=== PATIENT | male | born 1945 | race Caucasian/White ===

== ENCOUNTER 2020-06-30 15:52 | Emergency (ER) | payer MEDICARE, OTHER ==
[~2020-06-30] VITALS: Ht 180.3 cm; Wt 93.0 kg
[~2020-06-30 15:52] MED LIST: ATIVAN0.5 MG PO; DEMEROL50 MG PO; DILAUDID2 MG PO; FLAGYL500 MG PO; IBUPROFEN800 MG PO; LEVOFLOXACIN750 MG PO; MAPAP325 MG PO; NAPROXEN500 MG PO; OMEPRAZOLE20 MG PO; SEPTRA DS TABL1 EACH PO; TRANSDERM-SCOP1 EA TD; ZOFRAN ODT4 MG SL; ZOFRAN4 MG PO
[2020-06-30] MEDS ORDERED: GABAPENTIN600 MG (17:13)
[2020-06-30] MEDS ORDERED: CELEBREX100 MG PO (17:14)
[2020-06-30] MEDS ORDERED: TYLENOL325 M1 PO (17:15)
[2020-06-30] MEDS ORDERED: CIPRO500 MG PO (19:52)
[2020-06-30] MEDS ORDERED: PYRIDIUM200 MG PO (19:52)
--- OUTSIDE RECORDS SUMMARY | 2020-06-30 19:56 | XMS ---
PreManage Notification: BEKA CHEN Security Credit Representative Events No recent Security Events currently on file CRITERIA MET - [facility] CARE PROVIDERS There are no care providers on record at this time. Debbie has no Care Guidelines for this patient. Marina VISIT COUNT (12 MO.) 1 ALICIA Saha TOTAL 1 NOTE: Visits indicate total known visits. ED/UCC VISIT TRACKING (12 MO.) 06/30/2020 15:52 [facility] Basilio [place] TYPE: Emergency COMPLAINT: - URINE PROBLEM, FEVER INPATIENT VISIT TRACKING (12 MO.) 02/11/2020 05:52 [facility] Harry RASMUSSEN TYPE: Surgical Services DIAGNOSES: - Unilateral primary osteoarthritis, unspecified knee - Pain in left knee [email or web address]
--- NOTE | 2020-07-01 13:52 | EKG ---
[facility] [address] [facility] [place], [place] [address] Signed Sinus tachycardia Otherwise normal ECG No previous ECGs available Confirmed by KATARINA BOB DO ([id number]) on 07/01/2020 1:52:41 PM Electronically Signed By: KATARIAN BOB DO 07/01/20 1352 PATIENT NAME: BEKA CHEN Electrocardiogram DATE OF : 49 PHYSICIAN: KATARINA BOB DO REPORT #: [id number] REPORT IS CONFIDENTIAL AND NOT TO BE RELEASED WITHOUT AUTHORIZATION
== END 2020-06-30 20:20 | disposition home or self-care (01) ==
LOC: ED 15:52
DX: N30.00 Acute cystitis without hematuria (principal); Z88.0 Allergy status to penicillin; Z88.8 Allergy status to other drugs, medicaments and biological substances; Z88.5 Allergy status to narcotic agent; Z88.1 Allergy status to other antibiotic agents; Z79.899 Other long term (current) drug therapy
CPT/HCPCS: 71045; 80053; 81001; 83605; 85025; 93005; 93010; 96365; 96366; 96375; 99284-25; J1956; J2405; J7030

== ENCOUNTER 2020-07-23 03:42 | Emergency (ER) | payer MEDICARE, OTHER ==
[~2020-07-23] VITALS: Ht 180.3 cm; Wt 93.4 kg
[~2020-07-23 03:42] MED LIST changes: +CELEBREX100 MG PO; +CIPRO500 MG PO; +GABAPENTIN300 MG PO; +PYRIDIUM200 MG PO; +TYLENOL325 M1 PO
--- OUTSIDE RECORDS SUMMARY | 2020-07-23 05:18 | XMS ---
PreManage Notification: BEKA CHEN Security Environmental Health Nurse Events No recent Security Events currently on file CRITERIA MET - [facility] - 2 Visits in 30 Days CARE PROVIDERS There are no care providers on record at this time. Debbie has no Care Guidelines for this patient. Marina VISIT COUNT (12 MO.) 2 [facility] TOTAL 2 NOTE: Visits indicate total known visits. ED/C VISIT TRACKING (12 MO.) 07/23/2020 03:42 [facility] [place] TYPE: Emergency COMPLAINT: - URINE PROBLEM 06/30/2020 15:52 [facility] [place] TYPE: Emergency COMPLAINT: - URINE PROBLEM, FEVER DIAGNOSES: - Allergy status to narcotic agent - Allergy status to other antibiotic agents - Allergy status to penicillin - Allergy status to other drugs, medicaments and biological substances - Fever, unspecified - Acute cystitis without hematuria - Other care home (current) drug therapy INPATIENT VISIT TRACKING (12 MO.) 02/11/2020 05:52 [facility] Cady RASMUSSEN TYPE: Surgical Services DIAGNOSES: - Unilateral primary osteoarthritis, unspecified knee - Pain in left knee [id number]
== END 2020-07-23 07:34 | disposition home or self-care (01) ==
LOC: ED 03:42
DX: N13.2 Hydronephrosis with renal and ureteral calculous obstruction (principal); Z87.442 Personal history of urinary calculi; Z88.0 Allergy status to penicillin; Z88.5 Allergy status to narcotic agent; Z88.1 Allergy status to other antibiotic agents; Z88.8 Allergy status to other drugs, medicaments and biological substances; Z79.899 Other long term (current) drug therapy
CPT/HCPCS: 74176; 80053; 81001; 85025; 96365; 96375; 96376; 99284-25; J0696; J1170; J1200; J1885; J2405

== ENCOUNTER 2020-07-23 10:04 | Day surgery (SDC) | payer MEDICARE, OTHER ==
--- NOTE | 2020-07-23 13:35 | NUR ---
07/23/20 1335 Sheets,Iram 1329 PT ARRIVED TO PACU ON 6L, PT WAKES TO TACTILE STIMULI BY OPENING HIS EYES. PT FALLS RIGHT BACK TO SLEEP. VSS. RESP EVEN AND UNLABORED.
--- NOTE | 2020-07-23 13:38 | NUR ---
BELLADONNA SUPPOSITORY DISPENSED BY PARKER HARTMAN PER VERBAL ORDER FROM [facility].AER PLACED BY DR OLIVAS, PER RECTUM, AT END OF CASE 1320
--- NOTE | 2020-07-23 16:42 | NUR ---
New admit to the floor. Patient awake, alert and oriented x4. Haas intact, patent with keyla blood colored urine. Patient reports tolerable pain at this time. Recent pain medications admin in pacu per report. Vital signs stable, afebrile. IV fluids infusing without difficulty. Water provided to patient. Call light within reach.
--- NOTE | 2020-07-23 17:15 | NUR ---
Patient awake, a&ox4. Pt is on room air, respirations are even and non labored. Vital signs are stable, afebrile. Pt reports 7/10 bladder and penile pain. Haas remains intact, keyla red blood noted to be mixed with his urine. Pt tolerating clear liquids well. Will order dinner for the patient at this time and medicate him for pain, per his request. Patient has no needs. Personal supplies and call light within reach.
--- NOTE | 2020-07-23 17:33 | NUR ---
Zofran 8mg ivp and dilaudid 0.5mg ivp admin for reports of nausea and reporte uncontrolled bladder pain.
--- NOTE | 2020-07-23 18:22 | NUR ---
Patient resting in bed, respirations even and non labored. Pt reports improved pain. Haas intact, patent with blood noted urine; no notable clots. Patient declined dinner. Tolerating clear liquids at this time. Vital signs are stable, afebrile. No needs at this time. Personal supplies and call light within reach.
--- NOTE | 2020-07-23 19:10 | NUR ---
REPORT RECEIVED FROM MAGDIEL RN, PT LAYING IN BED, ALERT AND ORIENTED. ROSE DRAINING RED URINE, NO CLOTS NOTED, IRRIGATION SUPPLIES AT BEDSIDE. IVF INFUSING WNL, ON 2L O2 NC, CPOX IN PLACE AT 96%, SCDS IN PLACE. CALL LIGHT IN REACH, WATER REFILLED, PT STATES NO OTHER NEEDS AT THIS TIME. WILL CONT TO MONITOR
--- NOTE | 2020-07-23 20:58 | NUR ---
VITALS, I/O'S AND ASSESSMENT COMPLETE-- PT RESTING IN BED, ORIENTED BUT STATES SLIGHTLY DROWSY. REPORTS 5/10 PAIN, PRN MEDICATION ADMINISTERED. ROSE PATENT, DARK JIGAR/RED URINE DRAINING WITH NO CLOTS NOTED, 200ML OUT. IVF INFUSING WNL. ON 2L 02 NC, CPOX IN PLACE SPO2 100%, TITRATED TO 1.5 L, SPO2 AT 98%. WATER REFRESHED, CALL LIGHT IN REACH, NO OTHER NEEDS AT THIS TIME.
--- NOTE | 2020-07-23 21:29 | NUR ---
CHECKED IN ON PATIENT, SPO2 AT 98%, PT REPORTS PRN PAIN MEDS "HELPING A LITTLE SO FAR", NO CLOTS NOTED IN CATHETER OR ROSE BAG. IVF INFUSING WNL. PT STATES PAIN IN URETHRA IS CHRONIC, "THE LAST MONTH OR SO" AND STATES HE WILL USE CALL LIGHT IF PAIN BECOMES INTOLERABLE. NO OTHER NEEDS REPORTED, WILL CONT TO MONITOR.
--- NOTE | 2020-07-23 21:35 | NUR ---
CALL LIGHT ANSWERED, PT REQUESTS WATER REFILLED, CELL PHONE PLUGGED IN, ASKS AGAIN ABOUT HOME MEDICATIONS, DISCUSSED PLAN OF CARE AND MEDS WITH PATIENT. NO OTHER REQUESTS AT THIS TIME, CALL LIGHT IN REACH.
--- NOTE | 2020-07-23 22:25 | NUR ---
CALL LIGHT ANSWERED, PT REPORTS INCREASE IN PAIN /, IV PRN MEDICATION ADMINISTERED, ROSE PATENT, RED/DARK JIGAR DRAINAGE W NO CLOTS. PT STATES FEELING NEED TO VOID, PAIN AT URETHRA, CATHETER FLUSHED WITH 60 ML SALINE IRRIGATION FLUID. NO OTHER NEEDS AT THIS TIME, WILL CONT TO MONITOR
--- NOTE | 2020-07-23 23:40 | NUR ---
Rounded on patient, awake in bed, states experiencing nausea and itching. PRN Zofran and Benadryl administered. Pt states pain is 4/10, is tolerable at this time. 740 ML red urine emptied from menard bag, no clots noted. Water refreshed, call light in reach, no other needs at this time.
--- NOTE | 2020-07-24 00:53 | NUR ---
Rounded on patient, states he is uncomfortable, menard care complete and repositioned in bed. Discussed plan of care w patient. Juice provided, call light in reach, no other needs at this time.
--- NOTE | 2020-07-24 02:30 | NUR ---
VITALS, ASSESSMENT COMPLETE, PRN PAIN MEDICATION ADMINISTERED FOR 3-6/10 PAIN, PT STATES INTERMITTENT SHARP CRAMPS. ROSE PATENT, RED DRAINAGE WITH NO CLOTS IN ROSE TUBING OR BAG. TITRATED TO 1L 02, SPO2 97%. VSS. IVF INFUSING WNL. CALL LIGHT IN REACH, PT STATES NO OTHER NEEDS.
--- NOTE | 2020-07-24 04:56 | NUR ---
ROUNDED ON PATIENT, AWAKE IN BED, STATES PAIN IS "CLIMBING UP" MADE PLAN FOR PRN MEDICATIONS WHEN AVAILABLE. IVF INFUSING WNL. RED DRAINAGE IN ROSE, NO CLOTS PRESENT. CALL LIGHT IN REACH, WILL CONTINUE TO MONITOR
--- NOTE | 2020-07-24 05:28 | NUR ---
PRN PAIN MEDICATION ADMINISTERED FOR 7/10 PENILE PAIN. PT REPORTS GENERALLY UNCOMFORTABLE. IVF INFUSING WNL. NOW ON ROOM AIR, SPO2 97%. LAB IN ROOM.
--- NOTE | 2020-07-24 07:24 | NUR ---
REPORT RECIEVED FROM ABEBE HERRERA. PT RESTING IN BED WITH EYES OPEN. PT REPORTS HE WAS NOT ABLE TO SLEEP MUCH LAST NIGHT. PT REPORTS 3/10 PAIN STATING THE "PAIN MEDICATION IS HELPING." WHILE THIS RN IS IN ROOM PT BEGINS CRINGING AND CRYING OUT. WHEN ASKED PT STATES HIS BLADDER IS HAVING A SPASAM. BELLADONNA PROVIDED FOR PT. CATHETER EXAMINED, INTACT WITH NO DRAINAGE NOTED AT MEATUS. LIGHT PINK URINE DRAINING, NO CLOTS NOTED. PT REMAINS ON CONTINIOUS PULSE OX WITH O2 AT 97% ON ROOM AIR AND HEART RATE OF 78 BPM. BREAKFAST ORDER PLACED PER PT PREFERENCE. NO ADDITIONAL REQUESTS OR COMPLAINTS. CALL LIGHT WITHIN REACH. BED RAILS UP.
--- NOTE | 2020-07-24 09:01 | OR ---
[facility] [address] [place], [place] [address] Signed DATE OF OPERATION: 07/23/2020 SURGEON: Eddie Olivas MD PREOPERATIVE DIAGNOSES: 1. Two tiny distal left ureteral calculi with associated mild obstructive uropathy. 2. Active Escherichia coli urinary tract infection. POSTOPERATIVE DIAGNOSES: 1. Two tiny distal left ureteral calculi with associated mild obstructive uropathy. 2. Active Escherichia coli urinary tract infection. 3. Moderate caliber bulbar urethral stricture. 4. 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 NAMES OF PROCEDURES: 1. Diagnostic urethroscopy with urethral dilation using Kamran dilators from 12 to 24-Yemeni. 2. Diagnostic cystoscopy with left ureteral stent insertion. ANESTHESIA: General. ESTIMATED BLOOD LOSS: 15 mL. SPECIMENS: None. DRAINS: 1. A 6 x 28 cm double-J ureteral stent inserted into the left ureter. 2. A 24-Yemeni 2-way Haas catheter, connected to gravity drainage. INDICATIONS FOR PROCEDURE: Mr. Chen is a very pleasant 74-year-old male with a history of nephrolithiasis, who presented to my clinic earlier today upon referral from [facility] for evaluation of left distal ureterolithiasis. He had presented to the emergency department late last night with severe left-sided flank pain. He underwent a CT scan, which revealed 2 tiny ureteral calculi measuring 1 to 2 mm located near the left ureterovesical junction. Urinalysis was performed, which was suspicious for active urinary tract infection. He had presented to the emergency department on June 30 Electronically Signed By: EDDIE OLIVAS MD 07/24/20 0901 PATIENT NAME: BEKA CHEN OPERATIVE REPORT DATE OF : 49 REPORT #: [id number] PHYSICIAN: EDDIE OLIVAS MD PCP: OSMEL FERREIRA MD REPORT IS CONFIDENTIAL AND NOT TO BE RELEASED WITHOUT AUTHORIZATION [facility] [address] [place], [place] [address] Signed with complaints of urinary urgency, frequency, dysuria, and suprapubic pain, along with fevers and chills. His temperature was elevated at 103 degrees at that time and he was noted to have an elevated white count at around 16. No imaging was performed at that time. However, his urine was sent for culture and he was given empiric Cipro therapy. The urine culture revealed E. coli resistant to Levaquin, Cipro, Bactrim, and penicillins and so, his antibiotic was switched to cephalexin, which he took for approximately 10 days. His fever has since subsided, but he experienced acute left-sided plate flank pain last night. After discussion of the results of last night's CAT scan and his what appears to be an active urinary tract infection today, I recommended that the patient undergo semi-urgent left ureteroscopy with stone extraction. He presents today to undergo the aforementioned procedure. OPERATIVE FINDINGS: 1. Ureteroscopy was performed, which immediately revealed a moderate caliber stricture present in the bulbar urethra. This stricture was dilated using Kamran dilators over a 0.035 Sensor wire from 12-Yemeni to 24-Yemeni without difficulty. 2. Of note, diagnostic cystoscopy performed after dilation of the patient's bulbar urethral stricture revealed a small perforation in the posterior wall of the bladder, likely secondary to penetration of the Kamran dilator into the posterior wall of the bladder. This was noted immediately and for the remainder of the procedure, I was sure to keep the patient's bladder volumes at a minimum to prevent any potential leakage of irrigation into the patient's peritoneum. 3. Left semi-rigid ureteroscopy revealed [id number] stenosis of the distal left ureter. I did see one very small stone fragment from the left ureteral orifice. This small stone fragment fell into the patient's bladder during attempts to pass the ureteroscope into the left ureter. Even with the assistance of guidance of a Sensor wire, I was unable to safely pass the rigid ureteral scope into the left ureter for fear of damage to the ureter. I aborted my attempt to perform ureteroscopy and instead kept the Sensor wire fully advanced into the left renal pelvis, and removed the semi-rigid ureteroscope. 4. Over a Sensor wire, a 6 x 28 cm double-J ureteral stent was inserted into the patient's left collecting system under direct visualization without difficulty. 5. At the end of the procedure, a 24-Yemeni 2-way Haas catheter was inserted into the patient's bladder without difficulty. The catheter was manually irrigated 3 times to ensure adequate placement. 6. Of note, no stone fragments were extracted from the ureter today as I was unable to successfully cannulate the left ureter due to stenosis of the left distal ureter. DESCRIPTION OF PROCEDURE: After informed consent was obtained, the patient was taken back to the operating room. [facility] room table, where general anesthesia was induced. He was placed in the dorsal lithotomy position and his genitalia were Electronically Signed By: EDDIE OLIVAS MD 07/24/20 0901 PATIENT NAME: BEKA CHEN OPERATIVE REPORT DATE OF : 49 REPORT #: [id number] PHYSICIAN: EDDIE OLIVAS MD PCP: OSMEL FERREIRA MD REPORT IS CONFIDENTIAL AND NOT TO BE RELEASED WITHOUT AUTHORIZATION [facility] [address] [place], [place] [address] Signed prepped and draped in a standard sterile fashion. Using a 30-degree lens on a 22.5-Yemeni introducer, rigid cystoscope was inserted into the patient's urethra. I immediately noticed the moderate caliber bulbar urethral stricture. I passed a 0.035 Sensor wire through the stricture into the patient's bladder. Successful passage of the wire to the bladder was confirmed on fluoroscopy. Cystoscope was then removed from the patient's urethra. I then dilated the patient's urethra from 12-Yemeni 24-Yemeni using Kamran dilators guided over the Sensor wire. The urethral dilation was performed without any overt difficulty. The patient's bladder was drained of orange tinted urine via the Kamran dilators. The patient had been taking Pyridium prior to his procedure. Once the dilation was complete, I was able to insert a rigid cystoscope through the urethra and into the patient's bladder at this time. Diagnostic cystoscopy was performed and I immediately noticed the small perforation at the posterior wall of the bladder. This appeared to be secondary to passage of the Kamran into the posterior bladder wall during dilation. I did not see any obvious perivesical fat in the area. I drained the patient's bladder again and then removed the cystoscope. I then inserted a semi-rigid ureteroscope through the patient's urethra and into the patient's bladder. I located the left ureteral orifice where I initially noticed a small very small fragment of stone coming from the left ureteral orifice. I knew immediately that I would be unable to basket the stone from the left ureteral orifice since some of the stone remained within the left ureter. I made the decision to attempt to cannulate the left ureter using the semi-rigid ureteroscope. I initially met with a good deal of resistance during cannulization, so I remained in the distal ureter and advanced a Sensor wire through the ureteroscope and into the distal left ureter. I was able to pass the Sensor wire all the way up into the left renal pelvis. Placement of the wire was confirmed on fluoroscopy. With the wire in place, I then tried again to advance the ureteroscope using the Sensor wire as a guide. I tried a couple of times to gently advance the ureteroscope into the distal left ureter. There was a significant amount of stenosis in this area and after a couple of attempts, I decided to abort this portion of the procedure. The semi-rigid ureteroscope was then removed from the patient's bladder. I again confirmed proper position of the Sensor wire. I back-loaded the Sensor wire into a rigid cystoscope and successfully inserted a 6 x 28 cm double-J ureteral stent into the left collecting system without difficulty. After pulling the Sensor wire, I noticed an adequate coil within the left renal pelvis along with an adequate distal coil within the bladder. Again, I drained the patient's bladder again to avoid any significant distention of his bladder, given his very small punctate perforation. Once I was satisfied that the stent was in good position, I withdrew the cystoscope from the patient's bladder. I then inserted a 26-Yemeni 2-way Haas catheter into the patient's bladder and filled the balloon with 20 mL of sterile water. I manually irrigated the catheter 3 times with sterile water and irrigated normally and without any difficulty. The procedure was then terminated. The patient tolerated the procedure well. He will now be transferred to the postanesthesia care unit in stable condition. Electronically Signed By: EDDIE OLIVAS MD 07/24/20 0901 PATIENT NAME: BEKA CHEN OPERATIVE REPORT DATE OF : 49 REPORT #: [id number] PHYSICIAN: EDDIE OLIVAS MD PCP: OSMEL EFRREIRA MD REPORT IS CONFIDENTIAL AND NOT TO BE RELEASED WITHOUT AUTHORIZATION [facility] [address] [place], [place] [address] Signed DISPOSITION: I discussed the details of today's procedure with the patient's and answered all of her questions. I did notify her that I was unable to actively extract the 2 very small stones from the patient's distal left ureter due to stenosis of the distal left ureter. He will now recover in the PACU and we will continue to watch his urine output from his Haas catheter to be sure it is draining properly. He was sent home today with a prescription for oral Dilaudid 2 mg p.o. q. 4 to 6 hours p.r.n. pain, along with cefdinir 300 mg p.o. b.i.d. for a total of 10 days. He will be scheduled to return to clinic on August 05 to undergo a voiding trial and on August 07 to undergo cystoscopy with extraction of his indwelling left ureteral stent. MD PATRICIA Nova/PHUONG /[id number] Copies: ~ Electronically Signed By: EDDIE OLIVAS MD 07/24/20 0901 PATIENT NAME: BEKA CHEN OPERATIVE REPORT DATE OF : 49 REPORT #: [id number] PHYSICIAN: EDDIE OLIVAS MD PCP: OSMEL FERREIRA MD REPORT IS CONFIDENTIAL AND NOT TO BE RELEASED WITHOUT AUTHORIZATION
--- NOTE | 2020-07-24 09:20 | NUR ---
MORNING ASSESSMENT DUE. PT RESTING IN BED. PT REPORTS PAIN MEDICATION "HELPED." PAIN NOW 3/10 IN LOWER ABDOMEN ON LEFT SIDE. PT CONTINUES TO HAVE OCCATIONAL BLADDER SPASMS. CATHETER CARE DONE. CATHETER FLUSHED WITH 20ML NS. NO CLOTS NOTED. URINE LIGHT PINK. LUNG SOUNDS CLEAR. ABDOMEN SOFT. MD TO BEDSIDE FOR ROUNDS. NEW ORDERS PLACED FOR CMP AND UP TO CHAIR PER MD ORDER. 1PERSON ASSIST UP TO CHAIR. PT UNSTEADY ON FEET LOOSING BALANCE FREQUENTLY. O2 REMAINTS AT 96% ON ROOM AIR. BLADDER SPASMS LESSEN WITH TIME UP TO CHAIR. WARM BLANKET PROVIDED. NO ADDITIONAL REQUESTS OR COMPLAINTS. CALL LIGHT WITHIN REACH.
--- NOTE | 2020-07-24 10:12 | NUR ---
THIS RN TO ROOM TO CHECK ON PT. PT REMAINS UP TO CHAIR. MORNING CARES, CATHTER CARE AND LINEN CHANGE DONE. PT REPORTS 4/10 PAIN THAT IS "TOLERABLE" AT THIS TIME. PT CONTINUES TO HAVE OCCATIONAL BLADDER SPASMS, GROANING IN PAIN. SPAAMS SEEM TO OCCUR ABOUT EVERY 10 MINUTES. IV ABX COMPLETE. IV FLUIDS RESUMED. WATER REFILLED. O2 AT 93% ON ROOM AIR. HR 75BPM. PT DENIES ADDITIONAL REQUESTS OR COMPLAINTS. CALL LIGHT AMADOR BOONE. CT CALLED FOR IMAGING.
--- NOTE | 2020-07-24 10:47 | NUR ---
CT TECHNITIAN ARRIVED TO TAKE PT TO CT. IV SALINE LOCKED, ALCOHOL CAPS APPLIED. PT STANDS AND TRANSFERES SELF TO WHEELCHAIR WITH STAND BY ASSIST. CONTINUES TO BE UNSTEADY ON FEET. PT OFF FLOOR TO CT AT THIS TIME.
--- NOTE | 2020-07-24 11:41 | NUR ---
BOOTH CLEANER INFORMS THIS RN THAT PT HAS RETURNED FROM CT. THIS RN TO ROOM. PT FOUND STANDING ON HIS OWN. FALL PRECAUTIONS REVIEWED WITH PT. PT VERBALIZES UNDERSTANDING AND STATES "I HAD TO STAND TO HELP ME PEE SO THE PAIN WOULD GET BETTER." PT REPORTS 8/10 PAIN IN LOWER ABDOMEN AND AT SITE OF ROSE CATHETER. PT CONTINUES TO STATE "I STILL WANT TO GO HOME TODAY." STAND BY ASSIST UP TO CHAIR. CALL LIGHT WITHIN REACH. MD TO BEDSIDE FOR UPDATE. AWAITING NEW ORDERS.
--- NOTE | 2020-07-24 11:57 | NUR ---
WHEN PATIENT GOT BACK FROM IMAGING I HELPED PUT HIM BACK TO BED AND PUT HIS SCDS ON. ALSO PUT HIS HEAD UP AND FEET. I ALSO ORDERED HIS LUNCH.
--- NOTE | 2020-07-24 12:00 | NUR ---
DR. OLIVAS TO BEDSIDE WITH THIS RN TO ASSIST WITH ROSE CATHETER REPLACEMENT. 5ML REMOVED FROM CATHETER BALLOON, NO ADDITIONAL FLUID NOTED. CATHETER DC'D PER PROTOCOL, 325ML LIGHT PINK URINE NOTED IN CATHETER BAG. BEDSIDE VERBAL ORDERS GIVEN FOR UROJET LIDOCANE. ORDERS PLACED. COUDAE CATHETER PLACED BY DR. OLIVAS PER PROTOCOL, 425ML PINK URINE RETURN NOTED. CATHETER 20ML ADDED TO CATHETER BALLOON BY DR. OLIVAS. PT CONTINUES TO HAVE 8/10 PAIN "AT THE TIP AND RIGHT HERE" POINTING TO LOWER ABDOMEN. MD STATES TO GIVEN ORAL PAIN MEDICATION NOW WELL 1MG LOADING DOSE OF IV DILAUDID AND BELLADONA SUPPOSITORY. ALL GIVEN PER MD ORDER WITH MD AT BEDSIDE (SEE MAR). DUSTY AREA NOTED TO HAVE STOOL. DUSTY CARE DONE. PT CONTINUES RESTING IN BED. BED RAILS UP. CALL LIGHT WITHIN REACH.
--- NOTE | 2020-07-24 12:10 | NUR ---
DR OLIVAS AND ABEBE HOUGH IN CARING FOR PT. UNABLE TO VISIT AT THIS TIME. WILL FOLLOW
--- NOTE | 2020-07-24 12:18 | EKG ---
[facility] [address] [facility] [place], [place] [address] Signed Sinus rhythm with 1st degree AV block Otherwise normal ECG When compared with ECG of 30-JUN-2020 16:21, No significant change was found Confirmed by SANGEETHA FOSS MD ([id number]) on 07/24/2020 12:18:05 PM Electronically Signed By: SANGEETHA FOSS MD 07/24/20 1218 PATIENT NAME: BEKA CHEN Electrocardiogram DATE OF : 49 PHYSICIAN: SANGEETHA FOSS MD REPORT #: [id number] REPORT IS CONFIDENTIAL AND NOT TO BE RELEASED WITHOUT AUTHORIZATION
--- NOTE | 2020-07-24 13:23 | NUR ---
ULTRASOUND TECHNITIAN TO BEDSIDE. REQUESTS ASSISTANCE FROM THIS RN. THIS RN ADDS 100ML TO BLADDER FOR IMAGING. PT HAS INCREASED PAIN WITH ADDITIONAL FLUID TO BLADDER. PT REPORTS 4/10 "REALLY PAINFUL" TIGHT PAIN PRIOR TO ADDITONAL FLUID AND 8/10 PAIN AFTER ADDITION OF FLUID TO BLADDER. FLUID DRAINED AFTER 5 MINUTES. 100ML NOTED TO HAVE DRAINED. PT CONTINUES TO REPORT 8/10 PAIN STATING IT IS "REALLY BAD. LIKE I HAVE AN EXTREEMLY FULL BLADDER." ULTRASOUND TECHNITIAN REMAINS AT BEDSIDE TO FINISH EXAM. BED RAILS UP. CALL LIGHT WITHIN REACH.
--- NOTE | 2020-07-24 13:29 | NUR ---
PT STATES "THIS CATHETER HAS TO COME OUT. SOMETHING HAS TO HAPPEN, I'M GOING TO TAKE IT OUT." PT ADVISED THAT REMOVING HIS CATHETER IS UNLIKELY TO HELP. PT STATES HE WOULD LIKE TO TALK WITH THE DOCTOR. DR. OLIVAS CALLED AND UPDATED. ORDERS GIVEN FOR ADDITIONAL DOSE OF DILAUDID ONCE WELL IV LORAZAPAM ONCE IF DILAUDID IS NOT EFFECTIVE. DILAUDID GIVEN PER MD ORDER. PT UPDATED ON PLAN OF CARE. CALL LIGHT WITHIN REACH. BED RAILS UP.
--- NOTE | 2020-07-24 13:44 | NUR ---
PTS , NADINE, CALLED TO TALK WITH PT. PT REQUESTS THAT THIS RN UPDATE NADINE. NADINE UPDATED ON PLAN OF CARE AND PROCEEDURES TODAY. NADINE VERBALIZES UNDERSTANDING AND STATES HER QUESTIONS HAVE BEEN ANSWERED.
--- NOTE | 2020-07-24 14:38 | NUR ---
THIS RN TO ROOM TO CHECK ON PT. PT REPORTS PAIN CONTINUES AT 4-5/10. PT STATES HE WOULD LIKE TO TAKE THE LORAZAPAM. CONTINIOUS PULSE OX IN PLACE. O2 AT 94% ON ROOM AIR. IV ASSESSED, PT REPORTS PAIN AT IV SITE. SWELLING/INFILTRATION NOTED. IV DC'S PER PROTOCOL. NEW IV STARTED IN LEFT HAND PER PROTOCOL, BRISK BLOOD RETURN NOTED. IV FLUIDS CONTINUE INFUSING THROUGH LEFT HAND IV, NEW IV FLUID BAG HUNG. LORAZAPAM GIVEN (SEE MAR). PT DENIES ADDITIONAL REQUESTS OR COMPLAINTS AT THIS TIME. RIG MECHANIC TO BEDSIDE TO ASSIST PT. NO ADDITIONAL REQUESTS OR COMPLAINTS. CALL LIGHT WITHIN REACH.
--- NOTE | 2020-07-24 15:30 | NUR ---
THIS RN TO ROOM TO CHECK ON PT. PT RESTING IN BED. PT REPORTS PAIN HAS IMPROVED, NOW 2/10 ACHING PAIN. PT TEXTING ON PHONE. PT DENIES ADDITIONAL REQUESTS OR COMPLAINTS STATING HE IS FEELING "BETTER." CALL LIGHT WITHIN REACH. BED RAILS UP.
--- NOTE | 2020-07-24 15:55 | NUR ---
THIS RN WALKING BY ROOM. WATER AND BLOOD NOTED ALL OVER FLOOR. UPON ENTERING ROOM PT FOUND UP IN SHOWER WITH WATER RUNNING AND BLOOD DRIPPING FROM IV LINE. ROSE CATHETER LYING ON THE FLOOR. IV LINE RIPPED FROM PUMP TUBING, BLOOD DRIPPING FROM LINE AND SPLATTERED ALL OVER PTS ROOM, ACUÑA, BATHROOM FLOOR/ACUÑA/TOILET/SINK. THIS RN CALLED FOR ASSISTANCE, IVANIA RN BRINGS SHOWER CHAIR. PT GUIDED TO SIT DOWN. NEW CLAVE APPLIED TO IV LINE TO STOP BLOOD FLOOR. LINE CLEANED AND COVERED FOR SHOWER. ROSE CATHETER CLEANED AND REPLACED TO SIDE OF CHAIR BELOW BLADDER LEVEL. PINK URINE NOTED TO BE DRAINING. PT ASSISTED WITH SHOWER. ROOM CLEANED. HOUSE KEEPING CALLED TO ASSIST WITH ROOM CLEANING. NEW SHEETS, GOWN AND SOCKS PROVIDED. PT GUIDED BACK TO BED. PT CONTINUALLY STATES "I CAN DO IT ON MY OWN!" PT REMINDED OF FALL PRECAUTIONS AND DANGERS RELATED TO IV LINE AND ROSE CATHETER. PT VERBALIZES UNDERSTANDING BUT CONTINUES TO STATE "I CAN DO IT, I JUST GOT CONFUSED." PT BACK TO BED. FRESH SOCKS AND SCDS PROVIDED. NEW IV FLUID BAG AND TUBING CONNECTED. IV DRESSING SATURATED WITH BLOOD AND FLUID. IV ASSESSED, BRISK BLOOD RETURN NOTED, FLUSHES EASILY. NEW DRESSING APPLIED. ASSESSMENT DONE. ROSE CATHETER APPEARS TO BE DRAINING AT THIS TIME. DARK PINK URINE NOTED. ABDOMEN CONTINUES TO BE TENDER TO TOUCH. PT REPORTS 3/10 PAIN AND DENIES NEED FOR PAIN MEDICATION AT THIS TIME. NEW SCD'S APPLIED. PT VERBALIZES UNDERSTANDING OF FALL PRECAUTIONS. PT STATES HE DID NOT FALL WHILE HE WAS UP. PT NOTED TO BE DISORIENTED TO PLACE. BED ALARM ON. PTS AT BEDSIDE TO VISIT. CALL LIGHT WITHIN REACH. BED RAILS UP.
--- NOTE | 2020-07-24 16:56 | NUR ---
DR. OLIVAS CALLED WITH UPDATE REGARDING PTS STATUS AND EVENT MENTIONED IN PREVIOUS NOTE. NEW ORDERS TO LIMIT NARCOTIS WHEN POSSIBLE AND ADD COLASE TO EVEN MEDICAITONS. CURTAIN OPEN AND BED ALARM ON. CALL LIGHT WITHIN REACH. BED RAILS UP. CURTAIN OPEN FOR EASY VIEWING FROM NURSES STATION.
--- NOTE | 2020-07-24 17:09 | NUR ---
PT POST OP DAY 1 AFTER URETEROSCOPY WITH STONE EXTRACTION. PT UP TO CHAIR TODAY PER MD ORDER RELATED TO INCREASING PAIN. PRN PAIN MEDICATIONS AND ADDITIONAL MEDICATIONS GIVEN PER MD ORDER FOR 8/10 BLADDER AND PENIAL PAIN. MINIMAL IMPROVMENT WITH DILAUDID. LORAZAPAM GIVEN WITH NOTED IMPROVMENT IN PAIN BUT ALSO FOLLOWED BY EPISODE OF DISORIENTATION, OUT OF BED WITHOUT CALL LIGHT, DISCONNECTED IV LINE AND TANGLED ROSE CATHTER (SEE PREVIOUS RN NOTE). PT TOLERATING DIET WITH MINIMAL APPITITE. NEW [place]DEA CATHETER PLACED BY DR. OLIVAS THIS SHIFT. NEW IV TO LEFT HAND, IV FLUIDS INFUSING. CATHTER CONTINUES TO DRAIN PINK URINE, MONITORING, QUANTITY SUFFICIENT. BED/CHAIR ALARM RELATED TO DISORIENTATION. PT USES CALL LIGHT INCONSISTANTLY.
--- NOTE | 2020-07-24 17:29 | NUR ---
THIS RN TO ROOM TO CHECK ON PT. PT RESTING WITH EYES CLOSED. RESPIRATIONS EVEN AND UNABLORED. BED RAILS UP. BED ALARM ON. CALL LIGHT WITHIN REACH. PT EASILY VIEWED FROM NURSES STATION. PT ALLOWED TO REST. NO EXPRESSION, MUSCLE TENSION, OR OTHER OUTWARD SIGNS OF PAIN.
--- NOTE | 2020-07-24 17:48 | NUR ---
THIS RN NOTES FROM NURSES STATION THAT PTS O2 SATURATION IS DROPPING TO 88% ON ROOM AIR WHILE PT IS ASLEEP. THIS RN TO ROOM. PT AWAKENS TO VOICE, OXYGEN CLIMBS TO 95% ON ROOM AIR. PT PLACED ON 2L O2 BY NC WHILE SLEEPING. VITALS TAKEN, WNL. ROSE CATHETER EMPTIED FORM 350ML DARK PINK URINE. CATHTER CONTINUES TO DRAIN. PT DOES NOT MENTION PAIN AND GOES BACK TO RESTING WITH EYES CLOSED. BED RAILS UP. CALL LIGHT WITHIN REACH. PT ALLOWED TO REST.
--- NOTE | 2020-07-24 19:00 | NUR ---
BED ALARM ON. ABEBE REDD AND NADIR WEISS, AND THIS RN. PT REPORTS "I NEED MY CATHETER TO EMPTY SO I'M GETTING UP." PT EDUCATION DONE. PT ASSISTED BACK TO BED. PT STATES "I HAVE TO GET UP ALL THE TIME AT NIGHT SO MY BLADDER WILL DRAIN, THAT'S WHY I CAN'T SLEEP." ADDITIONAL EDUCATION DONE WITH PT. BED ALARM VOLUME INCREASED. PT RESTING IN BED. NO ADDITIONAL REQUESTS OR COMPLAINTS. CALL LIGHT WITHIN REACH. BED ALARM ON.
--- NOTE | 2020-07-24 19:10 | NUR ---
"I think I should go home to sleep on my own bed, I cant sleep here", redirectved by am RN, pt calm, upset over having to stay another night here. upset over"Maximus still having bladder problems, its not draining, I saw you working ont [employer] a while ago, i thnk you did something and now I have pee, but still not the same", comforted and reassured. O2 in place, IVf infusing, scds in place. Bed alarm on
--- NOTE | 2020-07-24 20:25 | NUR ---
BED ALARMING. pt STATED "IT WASN'T WORKING UNTIL I MOVED A LOT" INDICATING URINARY CATHETER. DISCUSSED CATHETER CARE. pt REPORTING PAIN AT TIMES. pt DETAILED EVENTS FROM PRIOR SHIFT. UP IN [place] TO AMBULATE, NO NEW URINE NOTED IN CATHETER WITH AMBULATION. BACK TO BED. FLUSHED WITH 60ML STERILE WATER PER ORDERS X3. DARK PINK URINE NOTED. JOSE R, PRIMARY RN IN ROOM. VITALS DONE. AFTER THIRD FLUSH pt REPORTED SOME RELIEF FROM PAIN. CALL LIGHT WITHIN REACH. BED ALARM ON. pt WILL CALL IF HE FEELS THE CATHETER NEEDS TO BE FLUSHED AGAIN.
--- NOTE | 2020-07-24 21:00 | NUR ---
CALL LIGHT ON. pt STATED "I HAVEN'T EATEN IN THREE DAYS!" OFFERED AVAILABLE FOOD. pt STATED "I DON'T WANT A HALFWAY SANDWICH, I WILL HAVE MY DAUGHTER BRING ME SOMETHING." PHONE WITHIN REACH. REPORTED THAT CATHETER "FEELS LIKE IT'S WORKING RIGHT NOW" MORE OUTPUT IN BAG SINCE LAST CHECK. LIGHT PINK IN COLOR. CALL LIGHT WITHIN REACH. BED ALARM ON. PRIMARY RN UPDATED.
--- NOTE | 2020-07-24 21:17 | NUR ---
iN BED, CALM, o22L nc IN PLACE, ivf INFUSING, SCDS IN PLACE, BED ALARM ON. PT WAITING FOR FAMILY TO BRING HIM FOOD.
--- NOTE | 2020-07-24 22:25 | NUR ---
Ate sandwich that family brought over, no emesis, tolerated well, calm, on 2L NC, Medicated with DIlaudid 2mg po per bladder pain and benadryl 25mg po per insomnia, calmer, f/c patent draining cranberry looking urine, flushed again as per his requets, clear/pink urine return noted. call light and fluids at bedside, will leave scds off per his request. bed alarm on
--- NOTE | 2020-07-25 00:22 | NUR ---
RESTING, CALM, RESP EVEN, UNLABORED, O2 2LNC IN PLACE, IVF INFUSING, F/C STILL DRAINING CRANBERRY COLORED URINE, CALL LIGHT AND FLUIDS AT BEDSIDE
--- NOTE | 2020-07-25 02:50 | NUR ---
In bed, eyes closed, o2 in place, no distress, calm, IVF infusing, f/c patent, draining cranberry looking urine QS, fluids and call light at bedside, bed alarm on SCDS off
--- NOTE | 2020-07-25 06:03 | NUR ---
Pt was irritable at begining of shift, concerned about bladder and penile pain. easily reoriented afte explanations given and calmed down, family brought food from home. FC flushed after pt c/o increased pressure and that catherer was not draining. effective. F/c w QS cranberry looking urine. Pt was medicated with Dilaudid 2mg x1 and Benadryl, effective, turns self in bed, IVF infusing, scds in place, tolerating diet and fluids, no emesis. O2 was placed on in am per comfort, will wean off this am. Cooperative with assessment, plesant. uses call light
--- NOTE | 2020-07-25 06:38 | NUR ---
On room air at this time, no sob, no c/o pain, awakes easily, f/c patent, drained 975cc cranberry looking urine, ivf infusing. Coop with vitals and assessment. went back to sleep
--- NOTE | 2020-07-25 07:01 | NUR ---
REPORT RECEIVED FROM ABEBE ODELL. PT RESTING IN BED WATCHING TV. PT STATES "I'M DOING MUCH BETTER THIS MORNING." PT REPORTS 4/10 PAIN AT TIP OF PENIS AND STATES "I THINK I WANT PAIN MEDICATION IN A LITTLE BIT." PT DENIES NAUSEA. PT ORIENTED TO ALL AND REPORTS HE WOULD LIKE TO GO HOME TODAY. O2 AT 95% ON ROOM AIR WITH HR OF 87. BREAKFAST ORDER PLACED. NO ADDITIONAL REQUESTS OR COMPLAINTS. CALL LIGHT WITHIN REACH. BED RAILS UP. BED ALARM ON.
--- NOTE | 2020-07-25 07:30 | NUR ---
MORNING ASSESSMENT DUE. PT RESTING IN BED. PT REPORTS 4/10 ACHING PAIN IN BLADDER AND BURNING PAIN AT THE END OF PENIS. PT REQUESTS PAIN MEDICATIONS, SEE MAR FOR MEDICATION GIVEN. ASSESSMENT DONE. LUNG SOUNDS CLEAR. ABDOMEN SOFT AND NON TENDER TO TOUCH. CATHETER FLUSHED WITH 100ML OF NORMAL SALINE. PT TOLERATED PROCEEDURE WELL WITH "ONLY A LITTLE PRESSURE." 100ML FLOWS BACK OUT WITH 2 SMALL CLOTS NOTED. URINE RETURNS TO LIGHT PINK IN COLOR. O2 SATURATIONS REMANING ABOVE 94% ON ROOM AIR. COPX DC'D PER PT REQUEST. STAND BY ASSIST UP TO CHAIR. PT MORE STEADY ON FEET THIS MORNING. PT REPORTS "MY IS GETTING TIRED TO TAKING CARE OF ME" STATING THAT HE HAS NEEDED MORE ASSITANCE WITH MOVING AROUND AT HOME THIS YEAR "BECAUSE OF MY SURGERIES." MORING CARES, CATHETER CARE, AND ORAL CARE DONE. PT UPDATED ON PLAN OF CARE. PT TEXTING ON PHONE. CHEERFUL AND TALKING ABOUT HIS PAST BIRTHDAYS. NO ADDITIONAL REQUESTS OR COMPLAINTS AT THIS TIME. CALL HERIBERTO BOONE. CURTAIN OPEN FOR EASY VIEWING FROM NURSES STATION.
--- NOTE | 2020-07-25 08:59 | NUR ---
THIS RN TO ROOM TO CHECK ON PT. PT REMAINS UP TO CHAIR. PT STATES HE IS FINISHED WITH BREAKFAST. PT CONSUMED 25% OF BREAKFAST STATING "THE RASPBERRIES WERE REALLY, REALLY GOOD!" PINK URINE CONTIUES TO DRAIN FROM ROSE CATHTER. PT REPORTS 3/10 DISCOMFORT THAT IS "OK RIGHT NOW." PT DENIES ADDITIONAL REQUESTS OR COMPLAINTS AND IS ANTICIPATING DISCHRAGE. CALL LIGHT WITHIN REACH. CURTAIN AND DOOR OPEN, PT EASILY VIEWED FROM NURSES STATION.
--- NOTE | 2020-07-25 09:09 | NUR ---
ABX DUE. THIS RN TO ROOM. PT TALKING WITH ON PHONE. PT REPORTS HE HAD A "BETTER" NIGHT AND IS "FEELING BETTER, WAITING FOR THE DOCTOR TO COME." PT REPORTS FEELING "COLD." WARM BLANKETS PROVIDED. ICE WATER REFILLED. NO ADDITIONAL REQUESTS OR COMPLAINTS. CALL LIGHT WITHIN REACH.
--- NOTE | 2020-07-25 09:24 | NUR ---
DR. OLIVAS CALLED TO SPEAK WITH THIS RN ABOUT PTS STATUS. DR. OLIVAS UPDATED. QUESTIONS ASKED AND ANSWERED. ORDERS GIVEN TO DISCHARGE PT. DR. OLIVAS STATES OK FOR PHARMCIST TO SEND PT HOME WITH 6 TABLETS OF DILAUDID AND 3 OF OXYBUTYIN FOR PT TO USE IF NEEDED TODAY WHILE WAITING FOR PHARMCIES TO OPEN, WHERE HE CAN FILL HIS PRESCRIPTIONS, TOMORROW. PHARCIST UPDATED. PT ON PHONE WITH . PT AND UPDATED ON PLAN FOR DISCHARGE. STATES SHE WILL BE COMING IN SOON WITH CLOTHES FOR PT AND WOULD LIKE TO HERE DISCHRAGE INSTRUCTIONS AT THAT TIME. PT DENIES ADDITIONAL REQUESTS OR COMPLAINTS, PT WATCHING TV. CALL LIGHT [employer]. PT EASILY VIEWED FROM NURSES STATION.
[2020-07-25] MEDS ORDERED: CEFDINIR300 MG PO (09:33)
[2020-07-25] MEDS ORDERED: OXYBUTYNIN CHLOR5 MG PO (09:34)
[2020-07-25] MEDS ORDERED: DILAUDID2 MG PO (09:34)
--- NOTE | 2020-07-25 09:47 | NUR ---
PUMP ALARMING. ABX INFUSION AND FLUSH COMPLETE. IV FLUIDS STOPPED. IV DC'D PER PROTOCOL BY NADIR BETANCOURT. GAUZE AND COBAN APPLIED. DISCHRAGE PAPERWORK COMPLETE. PT ANTICIPATING DISCHARGE. AWAITING ARRIVAL OF PTS , NADINE. NO ADDITIONAL REQUESTS OR COMPLAINTS AT THIS TIME. CALL LIGHT WITHIN REACH.
--- NOTE | 2020-07-25 10:26 | NUR ---
PT READY FOR DISCHARGE. PHARMACISTNANCY, TO BEDSIDE TO REVIEW MEDICATIONS WITH PT AND PTS , NADINE. PT AND VERBALIZE UNDERSTANDING OF MEDICATIONS AND PRN PAIN MEDICAITON USE. VITAL SIGNS STABLE. PT REPORTS 6/10 ACHING PAIN IN BLADDER WITH GETTING DRESSED. SEE MAR FOR MEDICATION GIVEN. PT DRESSED WITH ONE PERSON ASSIST. ROSE CATHETER INSTRUCTIONS REVIEWED WITH PT AND INCLUDING CATHETER CARE AT LEAST 3 TIMES DAILY AND HOW TO EMPTY CATHETER BAG. AND PT DEMONSTRATE UNDERSTANDING. DISCHARGE INSTRUCTIONS REVIEWED WITH PT AND . PT AND VERBALIZE UNDERSTANDING OF INSTRUCTIONS, MEDICATIONS, ACTIVITY RESTRICIONS AND CATHETER CARE. PT TRANSFERES SELF TO WHEELCHAIR WITH STAND BY ASSIST. PT WHEELED FROM MED/SURG NO ADDITIONAL REQUSTS, CONCERNS, OR COMPLAINTS.
[2020-07-25] MEDS ORDERED: CELECOXIB200 MG PO (19:43)
== END 2020-07-25 10:45 | disposition home or self-care (01) ==
LOC: DS 10:04 → MS 16:20 → DS 07-25 10:45
PROVIDERS: ATTEND Urology
PROC: 0T778DZ Dilation of Left Ureter with Intraluminal Device, Via Natural or Artificial Opening Endoscopic (ICD-10-PCS; principal; 2020-07-23 15:00)
DX: N20.1 Calculus of ureter (principal); N13.6 Pyonephrosis; B96.20 Unspecified Escherichia coli [E. coli] as the cause of diseases classified elsewhere; S37.29XA Other injury of bladder, initial encounter; T83.021A Displacement of indwelling urethral catheter, initial encounter; R31.0 Gross hematuria; K21.9 Gastro-esophageal reflux disease without esophagitis; J45.909 Unspecified asthma, uncomplicated; Y84.6 Urinary catheterization as the cause of abnormal reaction of the patient, or of later complication, without mention of misadventure at the time of the procedure; Z79.1 Long term (current) use of non-steroidal anti-inflammatories (NSAID); Z79.899 Other long term (current) drug therapy; Z90.49 Acquired absence of other specified parts of digestive tract; Z88.0 Allergy status to penicillin; Z88.5 Allergy status to narcotic agent; Z88.1 Allergy status to other antibiotic agents; Z88.8 Allergy status to other drugs, medicaments and biological substances; Z87.442 Personal history of urinary calculi
CPT/HCPCS: 00918; 36415; 51703; 74177; 76000; 76775; 80053; 82247; 82465; 83615; 84100; 84478; 84550; 85025; 93005; 93010; C1769; C2617; C9803; J0330; J0696; J1100; J1170; J1580; J1885; J2060; J2250; J2405; J2704; J2765; J3010; J7030; J7120; J7121; Q9967; U0003

== ENCOUNTER 2023-07-27 22:14 | Emergency (ER) | payer MEDICARE, OTHER ==
[~2023-07-27] VITALS: Ht 332.7 cm; Wt 89.0 kg
[~2023-07-27 22:14] MED LIST changes: +CEFDINIR300 MG PO; +CELECOXIB200 MG PO; +OXYBUTYNIN CHLOR5 MG PO
[2023-07-27 22:32] LABS: BILIRUBIN, URINE NEGATIVE (negative); BLOOD/HGB, URINE MODERATE (Negative); KETONE, URINE TRACE (Negative); LEUK ESTERASE, URINE NEGATIVE (negative); NITRITE, URINE NEGATIVE (negative)
[2023-07-27 22:37] LABS: BASOPHILS 0.6 % (0-2); EOSINOPHILS 3.3 % (0-6); HEMOGLOBIN 15.5 g/dL (12.0-18.0); LYMPHOCYTES 29.3 % (24-44); MCH 31.1 (27-36); MCV 94.3 fl (81-99); MONOCYTES 6.8 % (0-12); PLATELET COUNT 257 K/uL (140-440); RBC 4.98 M/ul (4.3-5.7); RDW 13.6 (10.5-15.0)
[2023-07-27 22:38] LABS: BACTERIA, URINE RARE /hpf (negative); CASTS, URINE NONE SEEN \\lpf; CRYSTALS, URINE NONE SEEN (0-1+); EPITHELIAL CELLS, URINE SQUAMOUS 1+ /lpf (0-1+); RED BLOOD CELLS, URINE 21-40 /hpf (0-5); REFLEX CULTURE, URINE No (No); WHITE BLOOD CELLS, URINE 0-1 /HPF (0-5)
[2023-07-27 22:56] LABS: ALBUMIN 3.6 g/dL (3.4-5.0); ALBUMIN/GLOBULIN RATIO 1.06 (1.1-2.4); ANION GAP 12.5 (7-21); BILIRUBIN, TOTAL 0.4 ng/dL (0.2-1.0); BUN/CREATININE RATIO 13.88 (6.0-28.6); CALCIUM 8.7 mg/dL (8.5-10.1); CREATININE, SERUM 1.44 mg/dL (0.70-1.30); POTASSIUM 3.5 mmol/L (3.5-5.1)
[2023-07-28 00:42] VITALS: BP 147/89
== END 2023-07-28 00:46 | disposition short-term general hospital (02) ==
LOC: ED 22:14
PROVIDERS: Family Medicine
DX: N13.2 Hydronephrosis with renal and ureteral calculous obstruction (principal); Z88.0 Allergy status to penicillin; Z88.5 Allergy status to narcotic agent; Z88.8 Allergy status to other drugs, medicaments and biological substances; Z79.899 Other long term (current) drug therapy
CPT/HCPCS: 36415; 74176; 80053; 81001; 83690; 85025; 96374; 96375; 96376; 99285-25; J1885; J1956; J2405; J3010; J7030

== ENCOUNTER 2024-04-24 10:38 | Emergency (ER) | payer MEDICARE, OTHER ==
[~2024-04-24] VITALS: Ht 332.7 cm; Wt 97.2 kg
[2024-04-24] MEDS ORDERED: TAMSULOSIN HCL0.4 MG PO (11:05)
[2024-04-24] MEDS ORDERED: ondansetron HCL 4 MG/2 ML VIAL IV ONE (11:15)
[2024-04-24] MEDS ORDERED: KETOROLAC TROMETHAMINE 15 MG/ML VIAL IV ONE (11:15)
[2024-04-24 11:19] LABS: BASOPHILS 0.6 % (0-2); EOSINOPHILS 4.5 % (0-6); HEMATOCRIT 45.4 % (35.0-50.0); HEMOGLOBIN 15.3 g/dL (12.0-18.0); LYMPHOCYTES 31.4 % (24-44); MCH 32.2 (27-36); MCHC 33.7 g/dl (30-36); MCV 95.5 fl (81-99); MONOCYTES 10.1 % (0-12); NEUTROPHILS 53.4 % (39-80); PLATELET COUNT 230 K/uL (140-440); RBC 4.76 M/ul (4.3-5.7); RDW 14.2 (10.5-15.0)
[2024-04-24 11:21] LABS: BILIRUBIN, URINE NEGATIVE (negative); BLOOD/HGB, URINE NEGATIVE (Negative); KETONE, URINE NEGATIVE (Negative); LEUK ESTERASE, URINE NEGATIVE (negative); NITRITE, URINE NEGATIVE (negative)
[2024-04-24 11:28] LABS: ALBUMIN 3.5 g/dL (3.4-5.0); ANION GAP 11.8 (7-21); BILIRUBIN, TOTAL 0.8 ng/dL (0.2-1.0); CALCIUM 8.9 mg/dL (8.5-10.1); POTASSIUM 4.8 mmol/L (3.5-5.1)
[2024-04-24] MEDS ORDERED: LIDODERM1 EACH TOP (12:17)
[2024-04-24 12:28] VITALS: BP 140/66
[2024-04-24] MEDS ORDERED: LIDOCAINE HCL 4% 1 EACH PATCH TD ONE (12:30)
[2024-04-24] MEDS ORDERED: LIDOCAINE PATCH REMOVAL 1 EA TD SCH (21:00)
== END 2024-04-24 12:29 | disposition home or self-care (01) ==
LOC: ED 10:38
PROVIDERS: Emergency Medicine
DX: R10.9 Unspecified abdominal pain (principal); K57.30 Diverticulosis of large intestine without perforation or abscess without bleeding; Z87.442 Personal history of urinary calculi; Z88.0 Allergy status to penicillin; Z88.1 Allergy status to other antibiotic agents; Z88.7 Allergy status to serum and vaccine; Z88.5 Allergy status to narcotic agent; Z88.8 Allergy status to other drugs, medicaments and biological substances; Z79.899 Other long term (current) drug therapy; Z98.890 Other specified postprocedural states
CPT/HCPCS: 36415; 74176; 80053; 81003; 85025; 96374; 96375; 99284-25; A9270; J1885; J2405